=== PATIENT | male | born 1935 | race Caucasian/White ===

== ENCOUNTER → 2016-03-24 | Outpatient (CLI) | payer MEDICARE, OTHER | LOC: GMAM 10:49 | PROVIDERS: ATTEND Family Medicine | DX: E03.9 Hypothyroidism, unspecified (principal) ==

== ENCOUNTER → 2016-11-03 | Outpatient (CLI) | payer MEDICARE, OTHER | END | disposition home or self-care (01) | LOC: GMAM 11:11 | PROVIDERS: ATTEND Family Medicine | DX: E03.9 Hypothyroidism, unspecified (principal); C61 Malignant neoplasm of prostate ==

== ENCOUNTER → 2017-05-25 | Outpatient (CLI) | payer MEDICARE, OTHER | LOC: GMAM 10:24 | PROVIDERS: ATTEND Family Medicine | DX: E03.9 Hypothyroidism, unspecified (principal); C61 Malignant neoplasm of prostate ==

== ENCOUNTER → 2017-06-22 | Outpatient (CLI) | payer MEDICARE, OTHER ==
--- NOTE | 2017-06-22 18:07 | RAD ---
EXAM DESCRIPTION: Knee,Left Complete CLINICAL HISTORY: PAIN IN LEFT KNEE COMPARISON: None. TECHNIQUE: 4 views left FINDINGS: Mild loss of joint space is observed in the lateral medial joint compartments. Mild femoral osteophyte formation is observed both laterally and medially. Mild patellofemoral joint arthritis is observed. A small joint effusion is evident. No fracturing is detected. 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 A small joint effusion is evident. Electronically signed by: Alden Gallardo MD 06/22/2017 6:06 PM CDT
--- NOTE | 2017-06-22 18:09 | RAD ---
EXAM DESCRIPTION: Knee,Right Complete CLINICAL HISTORY: PAIN IN RIGHT KNEE COMPARISON: None. 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 Marked loss of medial joint space is observed. Sclerosis of the articular surfaces of the medial joint compartment are observed. Lateral and medial femoral osteophyte formation is observed. Patellofemoral joint arthritis is observed. A small joint effusion is seen. No fracture is detected. IMPRESSION: Tricompartmental joint degenerative changes are observed most pronounced in the medial joint compartment. Electronically signed by: Alden Gallardo MD 06/22/2017 6:07 PM CDT
--- NOTE | 2017-06-22 18:10 | RAD ---
EXAM DESCRIPTION: Pelvis CLINICAL HISTORY: PIAN IN RIGHT AND LEFT HIP COMPARISON: None. TECHNIQUE: 2 views FINDINGS: The proximal femurs appear normal. No pelvic fracturing is detected. No soft tissue abnormality is seen. The tops of the iliac crests are not included on this exam. IMPRESSION: Unremarkable pelvis Electronically signed by: Alden Gallardo MD 06/22/2017 6:09 PM CDT
--- NOTE | 2017-06-22 18:12 | RAD ---
EXAM DESCRIPTION: Shoulder,Left 2 or More Views CLINICAL HISTORY: PAIN IN LEFT SHOULDER COMPARISON: Chest x-ray dated 01 June 2017 TECHNIQUE: 4 views left FINDINGS: Severe glenohumeral joint arthritis is observed. Sclerosis of the articular surfaces is noted. Inferior humeral head osteophyte formation is observed. The acromio clavicular joint is unremarkable. No evidence of a fracture or dislocation is seen. IMPRESSION: Severe glenohumeral joint arthritis is observed in the left shoulder Electronically signed by: Alden Gallardo MD 06/22/2017 6:10 PM CDT
--- NOTE | 2017-06-23 08:32 | MRI ---
EXAM DESCRIPTION: Knee,Right: MRI. CLINICAL HISTORY: OSTEOARTHRITIS OF KNEE COMPARISON: Radiographs of the same knee on this visit. TECHNIQUE: Multiplanar, high-field MRI, multiple sequences, without contrast: Right knee FINDINGS: Diffuse tear of the free edge of the posterior horn of the medial meniscus extending into the body of the meniscus. Diffuse full-thickness cartilage loss in the medial compartment. Diffuse free edge tear of the anterior horn of the meniscus without subluxation of the anterior aspect. Marginal spurs. Subchondral edema in the posterior medial plateau minimal subchondral edema on the medial condyle. Medial subluxation of the femur on the tibia. Spurs on intercondylar notch of the femur with tibial spine spurs and subcortical marrow edema is inferior to the posterior spine. Abnormal signal in the undersurface of the body of the lateral meniscus extending into the posterior horn. Intermediate signal in the anterior horn. Mild to moderate chondromalacia lateral compartment with focal grade 4 lesion posterior femoral condyle. Lateral Marginal spurs. Large septated cystlike fluid collection posterior medial soft tissues, 8 cm longitudinal. There are cystlike fluid collection with septations abutting the posterior insertion of the posterior cruciate ligament. Thickened edematous anterior cruciate ligament with partial loss of normal fibroid orientation. Fluid in Hoffa's fat pad anterior to the tibial insertion. Intermediate signal intensity segments of the posterior cruciate ligament. Intermediate signal in the fibular collateral ligament at the insertion on the femur. Popliteus tendon is unremarkable and remaining components of the lateral collateral ligament complex are intact. Minimal laxity in the medial collateral ligament. Minimal medial displacement of the ligament by medial joint effusion. Iliotibial band is intact. Suprapatellar effusion. Normal signal patellar tendon and intermediate signal in the quadriceps tendon. Minimal edema anterior to the patella. Grade 4 osteochondral lesions in the medial patellar facet posterior patellar ridge and lateral femoral trochlea. Spurs on the medial and lateral trochlea and marginal spurs on the patella. Patellar soft tissue restraints are intact. Minimal edema in the infrapatellar fat pad. IMPRESSION: 1. Diffuse tear of the free age of the posterior and anterior horns of the medial meniscus, also involving the body of the meniscus. Joint space loss and almost complete loss of articular cartilage medial compartment with marginal spurs and subchondral edema posterior medial plateau and minimal edema in the medial condyle. Medial shift of the femur on the tibia. 2. Horizontal tear of the inferior posterior horn lateral meniscus extending to the posterior body. Focal grade 4 osteochondral lesion in the lateral condyle. Marginal spurs. 3. Degenerative signal in the medial collateral ligament and the fibular collateral ligament but no tears. Mass effect on the medial collateral ligament from the medial meniscus and joint effusion. Posterior Glass's cyst 8 cm longitudinal. 4. Partial tear of the anterior cruciate ligament with some of the fibers remaining intact. Intra-cruciate space effusion. Degeneration of the posterior cruciate ligament. Fluid collection around the posterior tibial insertion. 5. Grade 4 osteochondral lesions in the medial patellar facet and the lateral femoral trochlea with marginal spurs. Suprapatellar effusion and prepatellar bursitis. Minimal degeneration of the quadriceps tendon. Electronically signed by: Mike Pickard MD 06/23/2017 8:30 AM CDT
== END | disposition home or self-care (01) ==
LOC: MRI 14:00
PROVIDERS: ATTEND Family Medicine
DX: M17.12 Unilateral primary osteoarthritis, left knee (principal)

== ENCOUNTER → 2017-12-15 | Outpatient (CLI) | payer MEDICARE, OTHER | LOC: GMAM 10:36 | PROVIDERS: ATTEND Family Medicine | DX: E53.8 Deficiency of other specified B group vitamins (principal); E03.9 Hypothyroidism, unspecified; C61 Malignant neoplasm of prostate; E78.5 Hyperlipidemia, unspecified ==

== ENCOUNTER → 2018-07-08 | Outpatient (CLI) | payer MEDICARE, OTHER ==
--- NOTE | 2018-07-08 20:26 | US ---
EXAM DESCRIPTION: Extremity,Lower [place] Arteries: Ultrasound. CLINICAL HISTORY: PVD COMPARISON: None. TECHNIQUE: Doppler evaluation of the bilateral lower extremity arterial flow waveforms and velocities. FINDINGS: Arterial waveforms in the right lower extremity are biphasic and triphasic from the right common femoral artery to the right dorsalis pedis artery.. Arterial waveforms in the left lower extremity are biphasic and triphasic from the left common femoral artery to the left dorsalis pedis artery.. Comments: Atherosclerotic calcifications in the bilateral common femoral arteries. Large septated cyst with thickened abraham and no abnormal vascularity in the popliteal fossa measuring 6.6 x 3.1 x 4.5 cm. IMPRESSION: Doppler sonography of the bilateral lower extremity arterial systems showing no evidence of significant atherosclerotic occlusive disease. Slightly less velocity in the left dorsalis pedis artery compared to the right. 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 Electronically signed by: Mike Pickard MD 07/08/2018 8:24 PM CDT
== END ==
LOC: US 13:30
PROVIDERS: ATTEND Family Medicine
DX: I73.9 Peripheral vascular disease, unspecified (principal)

== ENCOUNTER → 2018-12-07 | Outpatient (CLI) | payer MEDICARE, OTHER ==
--- NOTE | 2018-12-08 12:56 | US ---
EXAM DESCRIPTION: Soft Tissue,Abdomen: ULTRASOUND. CLINICAL HISTORY: EPIGASTRIC SWELLING, MASS OR LUMP. Midline abdomen. COMPARISON: None. TECHNIQUE: Transabdominal scanning: odonnell-scale mode. Doppler mode. FINDINGS: No hernia midline anterior abdominal wall, with patient relaxed in supine position. With patient in crunch position, and Valsalva maneuver, the subcutaneous fascia in the midline bulges forward but no definite hernia. Bowel can be seen with echogenic anterior surface and posterior shadowing. IMPRESSION: Anterior bulge of the midline abdominal wall with contraction Valsalva, but no definite hernia, at the lesion of palpation. Electronically signed by: Mike Pickard MD 12/08/2018 12:55 PM CDT
== END ==
LOC: US 09:13
PROVIDERS: ATTEND Family Medicine
DX: R19.06 Epigastric swelling, mass or lump (principal)

== ENCOUNTER → 2019-03-03 | Outpatient (CLI) | payer MEDICARE, OTHER | LOC: GMAM 14:54 | PROVIDERS: ATTEND Family Medicine | DX: M25.551 Pain in right hip (principal); R60.9 Edema, unspecified ==

== ENCOUNTER → 2019-03-07 | Outpatient (CLI) | payer MEDICARE, OTHER ==
--- NOTE | 2019-03-07 15:20 | US ---
EXAM DESCRIPTION: Venous Doppler sonogram,Lower Extremity RT CLINICAL HISTORY: EDEMA of the right lower extremity COMPARISON: None Available. TECHNIQUE: Right lower extremity venous duplex Doppler exam with grayscale and color Doppler images FINDINGS: Doppler evaluation of the right lower extremity deep veins was performed. Normal color flow is seen in the common femoral, superficial femoral, profunda femoral and greater saphenous veins. Normal flow is seen in the popliteal vein and veins below the knee in the calf. Normal venous compressibility and flow augmentation. Thick-walled cystic structure in the right popliteal region is consistent with a Glass's cyst measuring 4.4 x 7.2 x 2.9 cm. The wall is somewhat thicker than usually seen. Correlate with other studies. IMPRESSION: Negative for evidence of deep venous thrombosis on right lower extremity venous Doppler sonogram. Cystic structure in the right popliteal region most likely Glass's cyst. Electronically signed by: Mauricio Quevedo MD 03/07/2019 3:18 PM [employer]
== END ==
LOC: US 13:44
PROVIDERS: ATTEND Family Medicine
DX: R60.9 Edema, unspecified (principal); M71.21 Synovial cyst of popliteal space [Baker], right knee; M54.5 Low back pain

== ENCOUNTER → 2019-08-30 | Outpatient (CLI) | payer MEDICARE, OTHER ==
--- NOTE | 2019-08-31 16:31 | US ---
EXAM DESCRIPTION: Extremity,Lower [place] Arteries: Ultrasound. CLINICAL HISTORY: EDEMA. Lower extremity. COMPARISON: None. TECHNIQUE: Doppler evaluation of the bilateral lower extremity arterial flow waveforms and velocities. FINDINGS: Arterial waveforms in the right lower extremity are all multiphasic.. Arterial waveforms in the left lower extremity are all multiphasic.. Comments: Bilateral velocities are relatively symmetric. IMPRESSION: Doppler ultrasound of the bilateral lower extremity arterial systems showing no evidence of significant atherosclerotic occlusive disease. Electronically signed by: Mike Pickard MD 08/31/2019 4:30 PM CDT
== END ==
LOC: US 09:00
PROVIDERS: ATTEND Family Medicine
DX: R60.9 Edema, unspecified (principal)